=== PATIENT | male | born 1955 ===

== ENCOUNTER 2018-03-21 12:05 | Outpatient (REF) | payer BC, SELFPAY ==
[2018-03-21 19:54] LABS: ALT 68 U/L (12-78); BUN 21 mg/dL (7-18); CREATININE 1.05 mg/dL (0.70-1.30); Calcium 9.1 mg/dL (8.5-10.1); Chloride 106 mmol/L (98-107); Cholesterol 130 mg/dL (50-200); Glucose 108 mg/dL (70-100); HDL Cholesterol 34 mg/dL (40-60); LDL CHOLESTEROL 80 mg/dL (<100); Potassium 4.8 mmol/L (3.5-5.1); Sodium 141 mmol/L (136-145); Triglyceride 83 mg/dL (30-150)
[2018-03-21 20:13] LABS: Creatine Kinase 236 U/L (39-308)
== END 2018-03-21 12:25 ==
LOC: NCHCN 12:05
PROVIDERS: PCP Internal Medicine; Visit Provider Internal Medicine
DX: Z00.00 Encounter for general adult medical examination without abnormal findings (principal); Z13.228 Encounter for screening for other metabolic disorders; Z13.220 Encounter for screening for lipoid disorders
CPT/HCPCS: 80048; 80061; 82550; 83721; 84460

== ENCOUNTER 2019-04-13 16:04 | Outpatient (REF) | payer BC, SELFPAY ==
[2019-04-13 18:38] LABS: ALT 64 U/L (16-63); Anion Gap 10.3 mmol/L (3-11); BUN 22 mg/dL (7-18); CO2 25.7 mmol/L (21.0-32.0); Calcium 9.2 mg/dL (8.5-10.1); Chloride 105 mmol/L (98-107); Glucose 91 mg/dL (74-106); LDL CHOLESTEROL 92 mg/dL (<100); Potassium 4.5 mmol/L (3.5-5.1); Sodium 141 mmol/L (136-145)
[2019-04-17 11:09] LABS: Hepatitis C Ab w Rflx HCV PCR Negative (Negative)
== END 2019-04-13 16:24 ==
LOC: NCHCN 16:04
PROVIDERS: PCP Internal Medicine; Visit Provider Internal Medicine
DX: Z00.00 Encounter for general adult medical examination without abnormal findings (principal); I25.10 Atherosclerotic heart disease of native coronary artery without angina pectoris; I10 Essential (primary) hypertension; M17.9 Osteoarthritis of knee, unspecified; R94.5 Abnormal results of liver function studies
CPT/HCPCS: 80048; 83721; 86803; 84460

== ENCOUNTER 2021-05-22 18:09 | Outpatient (REF) | payer MEDICARE, OTHER, SELFPAY ==
[2021-05-22 19:34] LABS: ALT 61 U/L (16-63); Anion Gap 9.4 mmol/L (3-11); BUN 20 mg/dL (7-18); CO2 27.6 mmol/L (21.0-32.0); CREATININE 1.2 mg/dL (0.70-1.30); Calcium 9.3 mg/dL (8.5-10.1); Chloride 106 mmol/L (98-107); Glucose 96 mg/dL (74-106); LDL CHOLESTEROL 78 mg/dL (<100); Potassium 4.5 mmol/L (3.5-5.1); Sodium 143 mmol/L (136-145)
== END 2021-05-22 18:10 | disposition home or self-care (01) ==
LOC: NCHCN 18:09
PROVIDERS: PCP Internal Medicine; Visit Provider Internal Medicine
DX: I10 Essential (primary) hypertension (principal); I25.10 Atherosclerotic heart disease of native coronary artery without angina pectoris
CPT/HCPCS: 80048; 83721; 84460

== ENCOUNTER 2022-07-08 20:25 | Outpatient (REF) | payer MEDICARE, OTHER, SELFPAY ==
[2022-07-09 11:52] LABS: ALT 74 U/L (16-63); Anion Gap 7.4 mmol/L (3-11); BUN 23 mg/dL (7-18); CO2 27.6 mmol/L (21.0-32.0); CREATININE 1.4 mg/dL (0.70-1.30); Calculated LDL 56 mg/dL (<100); Chloride 103 mmol/L (98-107); Cholesterol 115 mg/dL (<200); Estimated GFR 55.43 (mL/min/1.73m2); Glucose 101 mg/dL (74-106); HDL Cholesterol 32 mg/dL (40-60); Potassium 4.4 mmol/L (3.5-5.1); Sodium 138 mmol/L (136-145); Triglyceride 138 mg/dL (<150)
[2022-07-09 12:21] LABS: Calcium 9.4 mg/dL (8.5-10.1); Creatine Kinase 199 U/L (39-308)
== END 2022-07-08 20:26 | disposition home or self-care (01) ==
LOC: NCHCN 20:25
PROVIDERS: PCP Internal Medicine; Visit Provider Internal Medicine
DX: I10 Essential (primary) hypertension (principal); I25.10 Atherosclerotic heart disease of native coronary artery without angina pectoris; E66.3 Overweight; R79.89 Other specified abnormal findings of blood chemistry
CPT/HCPCS: 80048; 80061; 82550; 84460

== ENCOUNTER 2023-07-14 16:44 | Outpatient (REF) | payer MEDICARE, OTHER, SELFPAY ==
[2023-07-14 21:03] LABS: ALT 80 U/L (16-63); Anion Gap 6.7 mmol/L (3-11); BUN 23 mg/dL (7-18); CO2 25.3 mmol/L (21.0-32.0); CREATININE 1.2 mg/dL (0.70-1.30); Calcium 9.3 mg/dL (8.5-10.1); Calculated LDL 100 mg/dL (<100); Chloride 104 mmol/L (98-107); Cholesterol 163 mg/dL (<200); Estimated GFR 66.28 (mL/min/1.73m2); Glucose 93 mg/dL (74-106); HDL Cholesterol 35 mg/dL (40-60); Potassium 4.3 mmol/L (3.5-5.1); Sodium 136 mmol/L (136-145); Triglyceride 142 mg/dL (<150)
[2023-07-14 21:23] LABS: Creatine Kinase 130 U/L (39-308)
== END 2023-07-14 16:45 | disposition home or self-care (01) ==
LOC: NCHCN 16:44
PROVIDERS: PCP Internal Medicine; Visit Provider Internal Medicine
DX: I10 Essential (primary) hypertension (principal)
CPT/HCPCS: 80048; 80061; 82550; 84460

== ENCOUNTER → 2023-08-02 02:22 | Outpatient (CLI) | payer MEDICARE, OTHER, SELFPAY ==
--- NOTE | 2023-08-02 | ETT_ITS ---
APPROVED REPORT Exam: Exercise Treadmill Patient Location: Out-Patient Room/Bed: Stress Nurse: Leonora Vargas RN Ordering Provider:CYRUS MACK, Contact Number: [phone] BMI: 28.05 Baseline Rhythm: Sinus Bradycardia Indications: Atherosclerosis Medical History Medical History: HLD, HTN, CKD, OA Cardiac Medications: Aspirin, lisinopril, atorvastatin Cardiac Risk Factors: Family hx, HTN, HLD Previous Cardiac Procedures: Cardiac stents x2 (2005) Pretest Chest Pain Characteristics: None Exercise History: Indeterminate Physical Disabilities: None Lung Sounds: Clear to auscultation Heart Sounds: Regular Stress Test Details Test: Exercise stress testing was performed using a Anurag protocol. Rest Stress HR Resting HR Supine: 54 bpm Max Heart Rate (APMHR): 153 bpm Resting HR Standin bpm Target HR (85% APMHR): 130 bpm Max HR Achieved: 154 bpm % of APMHR: 101 Recovery HR: 73 bpm HR response to stress: Normal HR response to stress BP Resting BP Supine: 118/78 mmHg Resting BP Standin/74 mmHg Max BP: 166/80 mmHg Recovery BP: 128/68 mmHg BP response to stress: Normal blood pressure response to stress. ECG Resting ECG: Sinus Bradycardia Ectopy: Occasional PVC's Stress ECG: Sinus Tachycardia ST Change: No significant ST segment changes noted Arrhythmia: None Recovery ECG: Sinus Rhythm Recovery ST Change: No significant ST segment changes noted Recovery Arrhythmia: Occasional PVC's Clinical Reason for Termination: Target HR Achieved Stress Symptoms: None Exercise duration: 10 min16 sec Highest Stage Reached: Stage 3: 3.4 mph at 14% grade. Exercise capacity: 10.16 METs Angina Score: None Easley Treadmill Score: 7.8 Rate Pressure Product: [id number] Stress ECG Conclusion 1. Resting EKG is normal 2. The patient exercised on the Anurag protocol , completed a workload of 10.16 METS 3. Normal heart rate aned blood pressure response ot exercise. Peak heart rate was 100% of predicted for age 4. There was no electrocardiographic evidence of myocardial ischemia 5. There were occassional PVCs seen Easley Treadmill Score is 7.8 which is Low risk. Stress Test Summary STAGE Time (mins) Speed (mph) Grade (%) HR BP SpO2 SYMPTOMS METS Supine 54 118/78 97 Standing 60 120/74 1 3 1.7 10 94 130/76 98 4.5 2 6 2.5 12 119 122/78 7 3 9 3.4 14 148 10 1 min recovery 130 158/72 98 3 min recovery 77 150/72 6 min recovery 73 128/68 98
== END ==
PROVIDERS: PCP Internal Medicine; Visit Provider Internal Medicine
DX: I25.10 Atherosclerotic heart disease of native coronary artery without angina pectoris (principal)
CPT/HCPCS: 93016; 93018; 93017

== ENCOUNTER 2024-08-10 17:10 | Outpatient (REF) | payer MEDICARE, OTHER, SELFPAY ==
[2024-08-10 19:41] LABS: ALT 69 U/L (16-63); Anion Gap 5.5 mmol/L (3-11); BUN 24 mg/dL (7-18); CO2 28.5 mmol/L (21.0-32.0); CREATININE 1.4 mg/dL (0.70-1.30); Calcium 9.7 mg/dL (8.5-10.1); Calculated LDL 74 mg/dL (<100); Chloride 107 mmol/L (98-107); Cholesterol 135 mg/dL (<200); Estimated GFR 54.75 (mL/min/1.73m2); Glucose 91 mg/dL (74-106); HDL Cholesterol 38 mg/dL (>or=40); Potassium 4.7 mmol/L (3.5-5.1); Sodium 141 mmol/L (136-145); Triglyceride 118 mg/dL (<150)
[2024-08-10 20:20] LABS: Creatine Kinase 291 U/L (39-308)
== END 2024-08-10 17:11 | disposition home or self-care (01) ==
LOC: NCHCN 17:10
PROVIDERS: PCP Internal Medicine; Visit Provider Internal Medicine
DX: E78.5 Hyperlipidemia, unspecified (principal); N18.2 Chronic kidney disease, stage 2 (mild)
CPT/HCPCS: 80048; 80061; 82550; 84460